=== PATIENT | male | born 1980 | race Caucasian/White ===

== ENCOUNTER 2024-09-02 18:42 | Inpatient (IN) | payer MEDICAID, SELFPAY ==
[2024-09-02 18:43] VITALS: BMI 32.4
[2024-09-02 19:01] VITALS: BP 140/78; PULSE 60; RESP 26; TEMP 36.3; O2SAT 100
--- NOTE | 2024-09-02 19:06 | XR_ITS ---
Examination: CT abdomen with intravenous contrast CT pelvis with intravenous contrast 2-D coronal reconstructions 2-D sagittal reconstructions Date and time of exam:September 02, 2024 2128 hrs. Indications: Abdominal pain nausea vomiting beginning 8 hours ago. CTDI: vol (mGy) 8 point DLP: (mGycm) 504 Technique: Multiple axial sections of the abdomen and pelvis have been obtained. 64 slice high-resolution scanner used. 3 mm axial sections have been obtained, post intravenous injection 60 cc [id number] 2-D sagittal, coronal reconstructions obtained. Low dose protocols were performed. One or more of the following dose reduction techniques were used; automated exposure control, adjustment of the mA and/or KV according to patient size, use of iterative reconstruction technique. Findings: No focal liver or splenic lesions No gallstones No pancreatic or adrenal mass No renal or ureteral calculi, no hydronephrosis 12 mm fat-containing umbilical hernia Fluid-filled enlarged inflamed appendix medial to the cecum, axial images 157 through 134 No pelvic abscess No bowel obstruction Urinary bladder intact Small fat-containing umbilical hernias Moderate degenerative disc disease L5-S1 Impression: Acute appendicitis No pelvic abscess
--- NOTE | 2024-09-02 19:16 | EDNOTE_ITS ---
ED Abdominal Pain RME/HPI General Chief Complaint: Abdominal Pain Stated complaint: ABD PAIN X4HRS, NAUSEA, VOMITING UNABLE TO HAVE BM Time seen by provider: 09/02/24 19:05 Arrival date/time: 09/02/24 18:42 44M with history of alcohol/drug use presents to ED with 4 hours of sudden RLQ pain, N/V, and unable to have BM. Patient denies dysuria/hematuria and flank pain. Limitations: no limitations Related Data Allergies Allergy/AdvReac Type Severity Reaction Status Date / Time No Known Allergies Allergy Verified 09/02/24 18:45 Review of Systems Review of Systems Systems Reviewed: All systems reviewed, normal except as documented Constitutional Constitutional: Reports system reviewed and no additional complaints, except as documented, Denies fever(s) and Denies headache(s) ENT Ears, Nose, Mouth, and Throat: Denies disequilibrium and Denies headache(s) Cardiovascular Cardiovascular: Reports system reviewed and no additional complaints, except as documented, Denies chest pain and Denies dyspnea Respiratory Respiratory: Reports system reviewed and no additional complaints, except as documented, Denies cough and Denies dyspnea Gastrointestinal Gastrointestinal: Reports system reviewed and no additional complaints, except as documented, Reports as per HPI, Reports abdominal pain, Reports constipation, Reports nausea and Denies vomiting Neurologic Neurologic: Reports system reviewed and no additional complaints, except as documented, Denies confusion, Denies disequilibrium and Denies headache(s) Psychiatric Psychiatric: Denies confusion Past Medical History Social History SMOKING STATUS: Never smoker ED Exam General Limitations: Present no limitations General appearance: Present alert and in distress Head Head exam: Present atraumatic Eye Eye exam: Present normal appearance, PERRL and EOMI ENT ENT exam: Present normal exam, normal oropharynx and mucous membranes moist Neck Neck exam: Present normal inspection, full ROM and trachea midline Chest Chest inspection: Present normal inspection and symmetric chest wall rise Respiratory Respiratory exam: Present normal lung sounds bilaterally Cardiovascular Cardiovascular exam: Present regular rate, normal rhythm and normal heart sounds Abdominal Exam Abdominal exam: Present soft and normal bowel sounds Abdominal tenderness: Present RLQ Extremities Exam Extremities exam: Present normal inspection and full ROM Back Exam Back exam: Present normal inspection and full ROM Neurological Exam Neurological exam: Present alert, oriented X3 and CN II-XII intact Psychiatric Psychiatric exam: Present normal affect and normal mood Skin Skin exam: Present warm, dry, intact and normal color Course Quality Measures none Orders Category Date Time Status Patient Condition Routine Admission 09/02/24 22:[address] in Observation Status Routine Admission 09/02/24 22:56 Active Activity as Tolerated Routine Care 09/02/24 22:56 Ordered COVID-19 Screening Questionnaire NOW Care 09/02/24 22:[address] Screening NOW Care 09/02/24 19:06 Active Decision to Admit X1 Care 09/02/24 22:37 Completed Insert IV NOW Care 09/02/24 19:06 Active Insert IV NOW Care 09/02/24 22:55 Active NPO NOW Care 09/02/24 22:38 Active NPO NOW Care 09/02/24 22:56 Active Obtain Written Consent For: NOW Care 09/02/24 22:56 Active Vital Signs, Non-Routine Q4H Care 09/02/24 23:00 Ordered Consult to General Surgery Stat Cons 09/02/24 22:37 Ordered Diet NPO (NOW) Diet 09/02/24 22:38 Completed Diet NPO (NOW) Diet 09/02/24 22:[address] abdomen pelvis w con Stat Exams 09/02/24 19:06 Completed Alcohol, Blood Medical Stat Lab 09/02/24 19:19 Completed CBC Stat Lab 09/02/24 19:19 Completed CMP [Comprehensive Metabolic Panel] Stat Lab 09/02/24 19:19 Completed Drug Screen,Urine Stat Lab 09/02/24 21:50 Completed Lactate (Lactic Acid) Stat Lab 09/02/24 19:19 Completed Lipase Stat Lab 09/02/24 19:19 Completed Procalcitonin Stat Lab 09/02/24 19:19 Completed UA [Urinalysis] Stat Lab 09/02/24 21:50 Completed Ketorolac Inj [Toradol Inj] Med 09/02/24 21:22 Discontinued 30 mg IVP X1 ONE Morphine Inj Med 09/02/24 19:06 Discontinued 5 mg IVP X1 ONE Ondansetron Inj [Zofran Inj] Med 09/02/24 19:06 Discontinued 4 mg IV X1 ONE Piper/Tazo 3.375 gm Premix [Zosyn] Med 09/02/24 22:36 Discontinued 3.375 gm in 50 ml IV X1 Piper/Tazo 3.375 gm Premix [Zosyn] 50 ml Med 09/02/24 22:57 Pending IV Q8HR Sodium Chloride 0.9% 1000 ml [Ns] 1,000 ml Med 09/02/24 23:00 Active IV 100 mls/hr Sodium Chloride 0.9% 1000 ml [Ns] 1,000 ml Med 09/02/24 19:06 Discontinued IV 500 mls/hr Code Status Routine Oth 09/02/24 22:55 Ordered Vital Signs Vital signs: Vital Signs Temperature 97.4 F 09/02/24 19:01 Pulse Rate 60 09/02/24 19:01 Respiratory Rate 26 H 09/02/24 19:01 Blood Pressure 140/78 H 09/02/24 19:01 Pulse Oximetry (%) 100 09/02/24 19:01 Oxygen Delivery Method Room Air 09/02/24 19:01 O2 at 100% on RA and WNLs Abdominal Pain MDM MDM Narrative MDM Narrative:: 44M with history of alcohol/drug use presents to ED with 4 hours of sudden RLQ pain, N/V, and unable to have BM. Patient denies dysuria/hematuria and flank pain. Physical exam reveals RLQ tenderness. Patient is afebrile, alert, but appears to be in pain. CT appy. Minimal leukocytosis. Procal/lactate normal. CMP unremarkable. UA moderate dehydration. Spoke to Dr. Buck, who will admit patient for surgery. Patient data External records reviewed:: [facility] previous records Clinical information provided by:: patient Social determinants that could affect healthcare access:: alcohol use Patient has the following chronic illnesses:: alcohol/drug use How is presenting disease/condition affected by chronic disease/condition?: exacerbated by Evaluation data The following diagnostics were reviewed and interpreted by me:: lab results and radiology exam(s) Lab and/or radiology exams considered but not ordered:: ordered Interpretation Summary: above Medications / Prescriptions Medications or Prescriptions considered but not ordered:: ordered Medication administrations:: Medication Administration History Sodium Chloride (Ns) 1,000 mls @ 100 mls/hr IV .Q10H YARON Stop: 10/02/24 22:59 Last Admin: 09/02/24 23:27 Dose: 100 mls/hr Documented By: BJORN Piperacillin/Tazobactam/Dextrose (Zosyn) 50 mls @ 100 mls/hr IV Q8HR YARON Stop: 09/09/24 22:56 Morphine Sulfate (Morphine Sulf Inj 10 Mg/Ml Vial) 4 mg IVP Q4HR PRN PRN Reason: pain Stop: 09/07/24 22:57 Ondansetron HCl (Ondansetron Inj 2 Mg/Ml Inj 2 Ml) 4 mg IV Q4HR PRN; Protocol PRN Reason: NAUSEA OR VOMITING Stop: 10/02/24 23:12 Discontinued Medications Sodium Chloride (Ns) 1,000 mls @ 500 mls/hr IV .Q2H ONE Stop: 09/02/24 21:05 Last Infusion: 09/02/24 21:53 Dose: Infused Documented By: Admin: 09/02/24 19:25 Dose: 500 mls/hr Documented By: BJORN Piperacillin/Tazobactam/Dextrose (Zosyn) 3.375 gm in 50 mls @ 100 mls/hr IV X1 ONE Stop: 09/02/24 23:05 Last Admin: 09/02/24 23:27 Dose: 100 mls/hr Documented By: BJORN Ketorolac Tromethamine (Ketorolac Inj 30 Mg/Ml Vial) 30 mg IVP X1 ONE Stop: 09/02/24 21:23 Last Admin: 09/02/24 21:41 Dose: 30 mg Documented By: BJORN Morphine Sulfate (Morphine Sulf Inj 10 Mg/Ml Vial) 5 mg IVP X1 ONE Stop: 09/02/24 19:07 Last Admin: 09/02/24 19:26 Dose: 5 mg Documented By: BJORN Ondansetron HCl (Ondansetron Inj 2 Mg/Ml Inj 2 Ml) 4 mg IV X1 ONE; Protocol Stop: 09/02/24 19:07 Last Admin: 09/02/24 19:26 Dose: 4 mg Documented By: BJORN above Consultations Consultation(s) initiated? (list below): Yes Diagnosis Differential diagnosis abdominal pain: abdominal pain, acute appendicitis, calculus of kidney, constipation, diverticulitis, gastroenteritis, pancreatitis, small bowel obstruction and other (kidney stone) Most likely diagnosis given after review of the tests above:: appy Admission Indicated Admission indicated?: indicated Admission Request Was there a request for admission?: Yes Admission Attestation Admission request attestation: Discussed case with [Dr. Buck] from General Surgery service regarding admission. Discussed patients ED course, exam findings, labs, and radiology results. The Surgeon [agrees] to accept the patient for admission. Disposition Plan Disposition Plan: Admit Discharge Plan Plan Patient Disposition: Admit Acute Care w/in Hospital Problem List Clinical Impression: Acute appendicitis
[2024-09-02] MEDS: SODIUM CHLORIDE 0.9% 1000 ML 1,000 ML 500 ML IV (19:25)
[2024-09-02] MEDS: ONDANSETRON INJ 2 MG/ML INJ 2 ML 4 MG IV (19:26)
[2024-09-02] MEDS: MORPHINE SULF INJ 10 MG/ML VIAL 5 MG IVP (19:26)
[2024-09-02 19:44] LABS: Lactate (Lactic Acid) 1.4 mMol/L (0.4-2.0)
[2024-09-02 19:47] LABS: Basophils % (Auto) 0 % (0-2.5); Eosinophils # (Auto) 0.2 Thou/mm3 (0.0-0.5); Eosinophils % (Auto) 2 % (0-10); Hematocrit 38.8 % (41.0-53.0); Hemoglobin 13.9 g/dL (13.5-16.0); Immature Granulocytes % (Auto) 0 % (0-0); Immature Granulocytes Auto 0.03 Thou/mm3 (0.00-0.00); Lymphocytes # (Auto) 2.1 Thou/mm3 (1.0-4.8); Lymphocytes % (Auto) 18 % (10-50); Mean Corpuscular HGB Conc 35.8 g/dl (31.0-37.0); Mean Corpuscular Hemoglobin 32.7 pg (25.0-35.0); Mean Corpuscular Volume 91 fL (80-100); Monocytes # (Auto) 0.6 Thou/mm3 (0.0-0.8); Monocytes % (Auto) 5 % (0-12); Neutrophils # (Auto) 8.9 Thou/mm3 (1.8-7.7); Neutrophils % (Auto) 75 % (37-80); Nucleated Red Blood Cell % 0 /100 WBC (0); Platelet Count 335 Thou/mm3 (140-440); RDW Standard Deviation 41.3 fL (35.1-43.9); Red Blood Count 4.25 Miln/mm3 (4.50-5.90); White Blood Count 11.9 Thou/mm3 (3.8-10.6)
[2024-09-02 20:24] LABS: Alanine Aminotransferase 29 U/L (10-49); Albumin, Serum 4.7 gm/dL (3.5-5.0); Albumin/Globulin Ratio 1.6 (1.2-2.2); Alcohol, Blood Medical < 3.0 mg/dL (0-10.0); Alkaline Phosphatase 60 U/L (46-116); Anion Gap 11 (7-16); Aspartate Amino Transferase 38 U/L (0-34); BUN/Creatinine Ratio 14 Ratio (12-20); Bilirubin,Total 0.5 mg/dL (0.3-1.2); Blood Urea Nitrogen 14 mg/dL (9-23); Carbon Dioxide 22.2 mMol/L (20.0-31.0); Chloride 108 mMol/L (98-107); Estimated Creatinine Clearance 105.1 mL/min (>60); Globulin 2.9 gm/dL (2.3-3.5); Glucose 100 mg/dL (74-106); Lipase 29 U/L (12-53); Osmolality,Calculated 281 (275-295); Potassium 3.7 mMol/L (3.4-5.1); Procalcitonin 0.05 ng/ml (0.0-0.49); Sodium 141 mMol/L (136-145); Total Protein 7.6 gm/dL (5.7-8.2); eGFR > 60 See Note
[2024-09-02] MEDS: KETOROLAC INJ 30 MG/ML VIAL IVP (21:41)
[2024-09-02 22:08] LABS: Collection Type, Urine Clean Catch; Squamous Epithelial Cell,Urine 0 /hpf (0-5)
[2024-09-02 22:26] LABS: Bilirubin,Urine Negative (Negative); Blood,Urine Negative (Negative); Clarity,Urine Clear (Clear/Hazy); Color,Urine Lt-Yellow (Lt Yel-Yel); Glucose, Urine Negative (Negative); Ketones,Urine 2+ (Negative); Leukocyte Esterase,Urine Negative (Negative); Nitrite,Urine Negative (Negative); PH,Urine 6.5 (5.0-7.0); Protein,Urine Negative (Neg - Trace); RBC,Urine 3 /hpf (0-3); Specific Gravity,Urine 1.028 (1.001-1.035); Urobilinogen,Urine Negative mg/dL (0.0-1.0); WBC,Urine < 1 /hpf (0-5)
[2024-09-02 23:04] VITALS: BP 133/85; PULSE 61; RESP 22; TEMP 36.4; O2SAT 96
[2024-09-02] MEDS: PIPER/TAZO 3.375 GM PREMIX 3.375 GM/50 ML BAG IV (23:27)
[2024-09-02] MEDS: SODIUM CHLORIDE 0.9% 1000 ML 1,000 ML 100 ML IV (23:27)
[2024-09-02 23:37] LABS: Amphetamine/Methamp Scrn,U Positive (Negative); Barbiturate Screen,Urine Negative (Negative); Benzodiazepines Screen,Urine Negative (Negative); Benzoylecgonine Screen, Ur Negative (Negative); Fentanyl Screen,Urine Negative (Negative); Opiate Screen,Urine Positive (Negative); THC Screen,Urine Positive (Negative)
[2024-09-03] VITALS (13 sets, daily range): BP systolic 106–132; BP diastolic 71–89; PULSE 60–91; RESP 16–95; TEMP 36.2–36.6; O2SAT 94–99; BMI 29.0
[2024-09-03] MEDS: MORPHINE SULF INJ 10 MG/ML VIAL 4 MG IVP ×3 (05:10→22:12)
[2024-09-03] MEDS: PIPER/TAZO 3.375 GM PREMIX 3.375 GM/50 ML BAG IV ×3 (05:26→22:12)
--- NOTE | 2024-09-03 06:37 | PD.SURHP ---
HPI Date of Admission 09/02/24 22:56 Chief Complaint Chief Complaint: Patient is admitted with a diagnosis of acute appendicitis HPI Patient was in his usual health until yesterday afternoon when he started having pain in the umbilical region which is moved down to the right lower quadrant. Patient did not vomit. He denies any diarrhea. No history of fever or chills. He denies any such pain in the past. His past medical history is essentially unremarkable and he does not have any allergy Review of Systems Constitutional Constitutional: Denies headache(s) ENT Ears, Nose, Mouth, and Throat: Denies disequilibrium and Denies headache(s) Neurologic Neurologic: Reports system reviewed and no additional complaints, except as documented, Denies confusion, Denies disequilibrium and Denies headache(s) Psychiatric Psychiatric: Denies confusion Past Medical History Past Medical History NEUROLOGIC: Negative Seizures CARDIAC: Negative Cardiac Disorders or Congestive Heart Failure RESPIRATORY: Negative Chronic Obstructive Pulmonary Disease (COPD) or Asthma GENITOURINARY: Negative Renal Disease ENDOCRINE: Negative Diabetes Mellitus Type 1 or Diabetes Mellitus Type 2 HEMATOLOGIC: Negative Sickle Cell Disease OTHER HISTORY: Negative Blood Transfusions, Blood Transfusion Reaction or Anesthesia Reactions Social History SMOKING STATUS: Current some day smoker ALCOHOL LAST INTAKE: Days (ago) Meds Home Medications and Allergies Allergies Allergy/AdvReac Type Severity Reaction Status Date / Time No Known Allergies Allergy Verified 09/02/24 18:45 Exam Vital Signs Temp Pulse Resp BP Pulse Ox O2 Del Method 97.2 F 60 16 124/87 H 97 Room Air 09/03/24 04:00 09/03/24 04:00 09/03/24 04:00 09/03/24 04:00 09/03/24 04:00 09/03/24 04:00 Narrative Exam Physical examination revealed well-built well-nourished male who is 5 foot 8 inches tall weighing 207 pounds. His vital signs are normal Routine Abdominal Exam Comments: Examination of the abdomen showed a definite tenderness in the right lower quadrant over the McBurney's point which is well localized. Patient also has some guarding Routine Rectal Exam Comments: Deferred Routine Exam Comments: Deferred Results Results: Laboratory Laboratory Narrative: Patient's laboratory workup showed leukocytosis around 11,000 Results: Imaging Imaging narrative: CT scan of the abdomen and pelvis showed acute appendicitis without perforation Assessment & Plan Additional Assessment Additional comments: Impression: Acute appendicitis Plan Plan: I advised the patient to undergo appendectomy. I explained to him the laparoscopic approach and the possible need for open approach. The risk of the procedure including perforation of the small intestine or colon resulting in further surgery or wound infection were explained to the patient. Trocar related complication like bleeding requiring further surgery was also explained to him. Patient has been started on Zosyn and he will be taken to the operating room as early as possible. Quality Measures Quality Measures none
--- NOTE | 2024-09-03 07:33 | SUR.PHASEI ---
0733 Patient arrived to recovery resting comfortably in [facility], on oxygen 8L via oxy mask with an oral airway in place, breathing unlabored, vital signs stable, dressing intact to abdomen; dissolvable sutures, gauze, medipore tape, no bleeding noted, report received from Antolin COVARRUBIAS and Luly DOYLE
--- NOTE | 2024-09-03 07:35 | PD.SUROPNT ---
Date of Procedure 09/03/24 Pre Op Diagnosis Acute appendicitis Post Op Diagnosis Same Procedure Laparoscopic appendectomy Findings Patient is found to have inflamed appendix and its entire length located inferior and medial to the cecum Procedure Description After the patient was placed in supine position and anesthesia was administered with endotracheal intubation. Abdomen was prepped with ChloraPrep solution and draped in a sterile manner. A timeout was performed and a small incision was made just above the umbilicus. Fascia was cleaned and Veress needle was inserted to obtain a pneumoperitoneum up to 15 mmHg. Then I introduced a 12 mm trocar at the umbilicus with a 10 mm camera. Patient was kept in Trendelenburg position with the left lateral tilt. Intra-abdominal organs were visualized and this showed omentum covering the right lower quadrant. A 5 mm trocar was inserted in the right lower quadrant under direct vision and using a laparoscopic [place] I move the omentum and identified the appendix. Appendix was inflamed in its entire length and was located medial to the cecum. Another 5 mm trocar was inserted in the left lower quadrant under direct vision and using Harmonic rivka I dissected the mesoappendix cauterizing the vessels. When the base of the appendix was reached this was stapled using an Endo cutter 35 power kenyatta. Then the appendix was retrieved through the Endopouch through the umbilical port. Then after irrigating and cleaning the pelvis and the right lower quadrant all the trocars were pulled out and the pneumoperitoneum was let out. Fascia was closed with interrupted 0 Ethibond and then I injected half percent Marcaine with epinephrine for analgesia. Skin was then closed with interrupted 4-0 Monocryl subcuticular stitches and a Tegaderm dressing was applied. Patient tolerated the procedure well and returned to recovery room in stable condition. Anesthesia GETA Pathology / specimen Other (The inflamed appendix) IVF Infused 400 Estimated Blood Loss 30 Condition Stable Disposition PACU Surgeon Zaki Buck MD Surgical Staff Operation Date: 09/03/24 06:15 Case Staff CUT OFF MACHINE UNLOADER: Deepti Deleon RN First Assistant: Andria Veloz
--- NOTE | 2024-09-03 08:05 | SUR.PHASEI ---
0802 Report given to Bharati DOYLE, patient meets discharge criteria from recovery, awake and alert, breathing unlabored, vital signs stable, denies pain, dressing intact; no bleeding, patient eating ice chips; tolerating well, denies nausea. 0805 Patient transported via gurney to room 377 without incident, patient able to walk from gurney to bed with stand by assist, patient resting comfortably in bed; eating ice chips when this race and sports book writer left patients room, patients family at bedside with him
[2024-09-03] MEDS: SODIUM CHLORIDE 0.9% 1000 ML 1,000 ML 100 ML IV (16:16)
--- NOTE | 2024-09-03 16:41 | PC.NURSE ---
Spoke with Mihai, Pt ok to take a shower when ready. I asked pt to wait until after dinner because I just gave him pain medicine and would feel more comfortable with him waiting until after the initial adverse effects of the pain medicine (possible dizziness, sleepiness, etc) have passed, pt agrees with plan
[2024-09-04] VITALS: BP 125/80; PULSE 80; RESP 18; TEMP 36.2; O2SAT 98
[2024-09-04 04:00] VITALS: BP 119/67; PULSE 78; RESP 14; TEMP 36.3; O2SAT 97
[2024-09-04] MEDS: PIPER/TAZO 3.375 GM PREMIX 3.375 GM/50 ML BAG IV (05:04)
[2024-09-04 05:34] LABS: Basophils % (Auto) 0 % (0-2.5); Eosinophils # (Auto) 0.1 Thou/mm3 (0.0-0.5); Eosinophils % (Auto) 1 % (0-10); Hematocrit 36.2 % (41.0-53.0); Hemoglobin 12.6 g/dL (13.5-16.0); Immature Granulocytes % (Auto) 0 % (0-0); Immature Granulocytes Auto 0.02 Thou/mm3 (0.00-0.00); Lymphocytes # (Auto) 2.4 Thou/mm3 (1.0-4.8); Lymphocytes % (Auto) 24 % (10-50); Mean Corpuscular HGB Conc 34.8 g/dl (31.0-37.0); Mean Corpuscular Hemoglobin 32.4 pg (25.0-35.0); Mean Corpuscular Volume 93 fL (80-100); Monocytes # (Auto) 0.7 Thou/mm3 (0.0-0.8); Monocytes % (Auto) 7 % (0-12); Neutrophils # (Auto) 6.7 Thou/mm3 (1.8-7.7); Neutrophils % (Auto) 68 % (37-80); Nucleated Red Blood Cell % 0 /100 WBC (0); Platelet Count 298 Thou/mm3 (140-440); RDW Standard Deviation 42.8 fL (35.1-43.9); Red Blood Count 3.89 Miln/mm3 (4.50-5.90); White Blood Count 9.8 Thou/mm3 (3.8-10.6)
[2024-09-04 05:49] LABS: Anion Gap 9 (7-16); Carbon Dioxide 22.4 mMol/L (20.0-31.0); Chloride 109 mMol/L (98-107); Potassium 3.6 mMol/L (3.4-5.1); Sodium 140 mMol/L (136-145)
[2024-09-04 08:00] VITALS: BP 122/81; PULSE 65; RESP 16; TEMP 36.7; O2SAT 97
--- NOTE | 2024-09-04 08:22 | PD.SURPROG ---
Documentation for date of: 09/04/24 Subjective Subjective Brief History: Patient was in his usual health until yesterday afternoon when he started having pain in the umbilical region which is moved down to the right lower quadrant. Patient did not vomit. He denies any diarrhea. No history of fever or chills. He denies any such pain in the past. His past medical history is essentially unremarkable and he does not have any allergy Narrative: Patient is feeling much better today and has tolerated diet yesterday. Exam Vital Signs Temp Pulse Resp BP Pulse Ox O2 Del Method FiO2 97.3 F 78 14 119/67 97 Room Air 5 09/04/24 04:00 09/04/24 04:00 09/04/24 04:00 09/04/24 04:00 09/04/24 04:00 09/04/24 04:00 09/03/24 07:48 His vital signs are normal Routine Abdominal Exam Comments: Examination of the abdomen is benign Results Results: Laboratory Laboratory Narrative: Laboratory results showed normal WBC Assessment & Plan Assessment Additional comments: Impression: Stable postoperative recovery following laparoscopic appendectomy Plan Plan: Will discharge patient today on follow him up next Saturday Procedures Procedures Laparoscopic appendectomy
[2024-09-04 08:53] VITALS: PULSE 67; PULSE 75; RESP 16; RESP 18; RESP 97; O2SAT 97
--- NOTE | 2024-09-04 14:36 | ESDS_ITS ---
RE: JOHN DE LA GARZA : 1980 DATE OF ADMISSION: 09/03/2024 DATE OF DISCHARGE: 09/04/2024 09:47 DATE OF ADMISSION: 09/03/2024 DATE OF DISCHARGE: 09/04/2024 REASON FOR ADMISSION: This patient is a 44-year-old male who was seen in the emergency room with abdominal pain of 1 day duration. He was found to have tenderness in the right lower quadrant and a WBC of 11,000 with a shift to the left. CT scan showed acute appendicitis. HOSPITAL COURSE: The patient was admitted and started on Zosyn and was taken to the operating room early years teacher of 09/03/2024. He underwent laparoscopic appendectomy. The patient's postoperative course was uneventful and he was discharged on the first postoperative day, which will be 09/04/2024. At the time of discharge, he was given [place] 20 tablets p.r.n. for pain and he was on a regular diet and his WBC was back to normal. The patient will be seen for a followup in my office in one week. DT: 09:50:42 TT: 14:34:00 Ref: [id number] - TID: [id number]
== END 2024-09-04 09:47 | disposition home or self-care (01) | DRG 234 ==
LOC: SERX 20:16 → SERHOLD 23:21 → S3SX 09-03 05:31 → SERHOLD 09-03 06:25
PROVIDERS: Physician Assistant; Admitting Provider Surgery; Emergency Provider Emergency Medicine; Visit Provider Surgery
PROC: 0DTJ4ZZ Resection of Appendix, Percutaneous Endoscopic Approach (ICD-10-PCS; CPT 44970; principal; 2024-09-03 06:00)
DX: K35.80 Unspecified acute appendicitis (principal); F17.200 Nicotine dependence, unspecified, uncomplicated; E86.0 Dehydration
CPT/HCPCS: 36415; 74177; 80051; 80053; 80307; 80320; 81001; 83605; 83690; 84145; 85025; 94664; 96361; 96374; 96375; 99285; A4217; A4649; C1713; G0378; J1100; J1885; J2270; J2405; J2543; J2704; J3010; J3490; J7030; Q9967; G0480